=== PATIENT | female | born 1935 | race Caucasian/White ===

== ENCOUNTER 2018-02-07 07:59 | Emergency (ER) | payer MEDICARE ==
[2018-02-07 08:07] VITALS: PULSE 75; RESP 18; TEMP 99.1
[2018-02-07 08:15] LABS: Glucose,Whole Blood 392 mg/dL (75-99)
[2018-02-07 08:27] VITALS: BP 190/85
--- NOTE | 2018-02-07 08:34 | ED ---
General Adult HPI - General Chief complaint: Recheck/Abnormal Lab/Rx Stated complaint: hyperglycemia Source: EMS Mode of arrival: EMS Limitations: no limitations - History of Present Illness Initial comments: Dictation was produced using [employer] dictation software. please excuse any grammatical, word or spelling errors. Chief Complaint: 82-year-old female with recently diagnosed pancreatic cancer, diabetes and hypertension presents with altered mental status. History of Present Illness: Patient is brought in by EMS for altered mental status. EMS reports that on upon initial evaluation she was found to have elevated blood sugar in the 400s and hypertension with systolic in the 200s. who presents at bedside reports that EMS was called initially for altered mental status and polyuria. reports that patient usually gets her care at [facility]. There is diffuse to be assessed here at our hospital. He reports that patient has complex medical history and adamantly request that patient be sent to [facility]. Patient was brought in by another EMS Company who was not able to transfer patient to the requested location. The usual [facility] EMS service was not available due to being shortstaffed. [facility] was dispatched to their location however there are not able to take people outside of the local area. - Related Data Allergies Allergy/AdvReac Type Severity Reaction Status Date / Time procaine [From Novocain] AdvReac Rash/Hives Verified 02/07/18 08:08 Review of Systems ROS Statement: Those systems with pertinent positive or pertinent negative responses have been documented in the HPI. ROS Other: All systems not noted in ROS Statement are negative. Past Medical History Past Medical History: Diabetes Mellitus Additional Past Medical History / Comment(s): Pancreatic Cancer History of Any Multi-Drug Resistant Organisms: None Reported Past Surgical History: No Surgical Hx Reported Past Psychological History: No Psychological Hx Reported Smoking Status: Never smoker Past Alcohol Use History: None Reported Past Drug Use History: None Reported General Exam - General Exam Comments Initial Comments: Gen. exam: No acute distress, alert and oriented 3 Limitations: no limitations Course Vital Signs 02/07/18 02/07/18 08:01 08:07 Temperature 99.1 F Pulse Rate 75 Respiratory 18 Rate Blood Pressure 190/85 O2 Sat by Pulse 98 Oximetry Medical Decision Making - Medical Decision Making ED course: 82-year-old female recently diagnosed pancreatic cancer presents with altered mental status, hyperglycemia and hypertension. Initial vital signs are within acceptable limits except for blood pressure which patient refused to allow us to measure blood pressure. But sugar is 392. and patient are adamantly refusing any sort of assessment here at our facility. Discussed with patient and that we are able to arrange for EMS transfer to desired location however this may not be covered with insurance. Furthermore, patient would have to sign out AGAINST MEDICAL ADVICE given that they're unwilling to allow us to assess. Patient and family member understand that she may experience significant morbidity and mortality while en route to another facility for not allowed to do assessment. They understand the risk of being transferred without assessment by our team. They're also told that insurance likely will not cover ambulance transfer if were not allowed to do an assessment. Patient in family member understand. At the time of discussion patient and family member are alert oriented and competent to make this decision. EMS was arranged for transfer. Patient exhibited our ER facility approximately 9:10 AM. - Lab Data Lab Results 02/07/18 Range/Units 08:12 POC Glucose (mg/dL) 392 H (75-99) mg/dL POC Glu Poly Operator ID Celina Min Disposition Clinical Impression: Altered mental status Disposition: Left Against Medical Advice Condition: Undetermined Is patient prescribed a controlled substance at d/c from ED?: No Referrals: Patti Mckay DO [Primary Care Provider] - 1-2 days Time of Disposition: 08:34
== END 2018-02-07 09:13 | disposition left against medical advice (07) ==
LOC: EC 07:59
DX: R41.82 Altered mental status, unspecified (principal); R35.8 Other polyuria; E11.9 Type 2 diabetes mellitus without complications; Z85.07 Personal history of malignant neoplasm of pancreas; Z88.8 Allergy status to other drugs, medicaments and biological substances
CPT/HCPCS: 36415; 99284